=== PATIENT | female | born 1990 | race Caucasian/White ===

== ENCOUNTER → 2016-06-03 | Outpatient (CLI) | payer OTHER | LOC: ULTRA 08:06 | DX: C22.0 Liver cell carcinoma (principal); J32.9 Chronic sinusitis, unspecified; R10.11 Right upper quadrant pain ==

== ENCOUNTER → 2020-08-20 | Outpatient (CLI) | payer OTHER | LOC: ULTRA 08:20 | PROVIDERS: ATTEND Family Medicine | DX: K76.0 Fatty (change of) liver, not elsewhere classified (principal); R10.9 Unspecified abdominal pain; R93.5 Abnormal findings on diagnostic imaging of other abdominal regions, including retroperitoneum ==